=== PATIENT | male | born 1965 | race Caucasian/White ===

== ENCOUNTER → 2017-05-10 | Outpatient (CLI) | payer OTHER ==
[~2017-05-10] MED LIST: AMLO-114 PO; GLC/500 PO; LISI20TA3 PO; OXYM0.056 NAE; RIZA10TA18 PO; SIMV20TA2 PO
--- NOTE | 2017-05-10 10:02 | DIAGNOSTIC IMAGING REPORT ---
CAROTID DOPPLER NECK ART CLINICAL HISTORY: 51 years-old Male presenting with VERTIGO. TECHNIQUE: Real-time grayscale and color and spectral Doppler ultrasound imaging of the bilateral carotid arteries was performed. NASCET criteria was used in evaluating this study. COMPARISON: None. FINDINGS: Right: Common carotid: Patent. Peak systolic velocity 97 cm/s. Internal carotid artery: Patent. Peak systolic velocity 60 cm/s. External carotid artery: Patent. Peak systolic velocity 93 cm/s. Systolic ratio: 0.6. Left: Common carotid: Patent. Peak systolic velocity 91 cm/s. Internal carotid artery: Patent. Peak systolic velocity 59 cm/s. External carotid artery: Patent. Peak systolic velocity 103 cm/s. Systolic ratio: 0.6. Bilateral antegrade flow within the vertebral arteries. Reference ranges: Normal ICA peak systolic velocity less than 125 cm/s. Normal ICA peak systolic velocity to common carotid artery velocity ratio is less than 2: less than 2 equates to less than 50% stenosis, 2-4 equates to 50-69% stenosis, greater than 4 equates to greater than or equal to 70% stenosis. Normal ICA end-diastolic velocity less than 40. Blood pressure Brachial: Right: 140/86 mmHg, Left: 141/86 mmHg. IMPRESSION: No hemodynamically significant stenosis seen within the carotid arteries. Electronically signed by: Tru Sutton M.D. 05/10/2017 10:00 AM Dictated Date/Time: 05/10/2017 9:59 AM
--- NOTE | 2017-06-10 18:55 | CODING QUERY MEDICAL NECESSITY ---
SUPPORTING DIAGNOSIS NEEDED A supporting diagnosis is required for the test/procedure performed on this patient in order for us to be reimbursed by the patient's insurance. Please provide a supporting diagnosis for the following test/procedure listed below next to the test name along with your signature. *If there is no additional diagnosis for this patient that would support the following test/procedure please document that below next to the test/procedure. Test(s)/Procedure(s) that require a supporting diagnosis: * US CAROTID DOPPLER NECK ARTERY DIAGNOSIS: Provider Signature: Date: Thank you Marline Rucker [employer] Once completed, please kindly fax back to [phone] For questions please call [phone]
== END ==
LOC: C.ULTR 09:25
PROVIDERS: ATTEND Nurse Practitioner
DX: R42 Dizziness and giddiness (principal)

== ENCOUNTER → 2017-06-08 | Outpatient (CLI) | payer OTHER ==
[~2017-06-08] MED LIST changes: +GADAVIST IV PRN
--- NOTE | 2017-06-08 13:42 | DIAGNOSTIC IMAGING REPORT ---
MRI OF THE BRAIN WITHOUT AND WITH IV CONTRAST CLINICAL HISTORY: STROKE LIKE .EPISODE;TRANSIENT SPEECH DISTURBANCE. COMPARISON STUDY: No previous studies for comparison. TECHNIQUE: Utilizing a 1.5 Francine magnet and dedicated coil, multiplanar, multiecho imaging of the brain was performed pre and postcontrast administration. IV administration of 7.5 mL of Gadavist contrast was uneventful. FINDINGS: There are no areas of restricted diffusion. No acute intracranial hemorrhage, midline shift or mass effect is present. Brain volume is normal. Ventricular system is normal. Basilar cisterns are patent. There are no extra-axial collections. Flow-voids for the major intracranial vessels are present. There is no intracranial mass or pathologic enhancement. There is a 1 cm old lacunar infarct within the left cerebellar hemisphere. There are multiple subcortical and periventricular white matter T2 hyperintense foci. Calvarial signal is maintained. Small amount of fluid is noted within the left mastoid air cells. There is moderate polypoid mucosal thickening of the sinuses. IMPRESSION: 1. No acute intracranial findings. 2. 1 cm old lacunar infarct within the left cerebellar hemisphere. 3. Scattered small white matter T2 hyperintense foci which are nonspecific although statistically reflect small vessel disease, slightly greater than expected for age. 4. Small amount of fluid within the left mastoid air cells. Electronically signed by: Ryan Solis M.D. 06/08/2017 1:41 PM Dictated Date/Time: 06/08/2017 1:34 PM
== END | disposition home or self-care (01) ==
LOC: C.MRI 10:11
PROVIDERS: ATTEND Psychiatry & Neurology Neurology
DX: I63.9 Cerebral infarction, unspecified (principal); R42 Dizziness and giddiness; R47.9 Unspecified speech disturbances

== ENCOUNTER 2017-09-10 16:05 | Emergency (ER) | payer OTHER ==
[~2017-09-10] VITALS: Ht 165.1 cm; Wt 78.2 kg
[~2017-09-10 16:05] MED LIST changes: -GADAVIST IV PRN
[2017-09-10 16:16] VITALS: TEMP 36.8; Ht 165.1 cm; Wt 78.2 kg
[2017-09-10] MEDS ORDERED: KETOROLAC TROMETHAMINE 30 MG/ML VIAL IV STA (16:28)
--- NOTE | 2017-09-10 16:37 | EMERGENCY ROOM VISIT NOTE ---
History Report prepared by Loretta: Darion Ortiz Under the Supervision of: Dr. Lino Rodriguez M.D. First contact with patient: 16:20 Chief Complaint: FLANK PAIN Stated Complaint: PAIN IN L SIDE OF BACK UNDER RIBCAGE History of Present Illness The patient is a 51 year old male who presents to the Emergency Room with complaints of constant left-sided flank pain beginning two months ago. The patient states that his pain is under the ribs and under the shoulder blade. He notes that he also experiences occasional chest pain that seems to spread to his back. He reports that his pain worsens when he lies down or breathes. He denies any rashes, fever, cough, urinary symptoms, abdominal pain, SOB, and recent injuries. The patient states that he has a history of diabetes, hypertension, neuropathy in his feet, but does not have any previous history of heart and lung problems. He notes that he has had the shingles shot and takes aspirin daily. Source of History: patient Onset: two months ago Position: other (left flank) Timing: constant Modifying Factors (Worsening): breathing, other (laying down) Associated Symptoms: + chest pain, No fevers, No cough, No SOB, No abdominal pain, No urinary symptoms, No rash Note: He denies any recent injuries. Review of Systems See HPI for pertinent positives & negatives. A total of 10 systems reviewed and were otherwise negative. Past Medical & Surgical Medical Problems: (1) Diabetes (2) HTN (hypertension) (3) Neuropathic pain of both legs Old medical records were reviewed. Nurse's notes were reviewed and I agree with. Family History No pertinent family history stated. Social History Smoking Status: Never Smoker Drug Use: none Marital Status: Housing Status: lives with family Occupation Status: disabled Current/Historical Medications Scheduled Amlodipine Besylate (Amlodipine Besylate), 10 MG PO QAM Aspirin (Aspirin Ec), 81 MG PO DAILY Lisinopril (Lisinopril), 20 MG PO BID Metformin Hcl (Glucophage), 1,000 MG PO BID Simvastatin (Simvastatin), 20 MG PO QPM Scheduled PRN Rizatriptan Benzoate (Rizatriptan Benzoate), 10 MG PO UD PRN for Migraine Allergies Coded Allergies: No Known Allergies (Unverified , 06/22/16) Physical Exam Vital Signs Date Time Temp Pulse Resp B/P (MAP) Pulse Ox O2 Delivery O2 Flow Rate FiO2 09/10/17 18:11 85 18 126/80 96 Room Air 09/10/17 17:21 90 18 151/94 97 Room Air 09/10/17 16:16 36.8 105 20 159/101 97 Room Air Physical Exam General: Non-ill appearing middle age male in no acute distress. HEENT: Normal cephalic atraumatic. Pupils are equal round and reactive to light. Extraocular movements are intact. Oropharynx is pink with moist mucous membranes. No swelling of the mouth lips or tongue. Neck: Supple with a midline trachea. No meningeal signs or stiffness, no JVD or bruits. No Stridor. Chest: Clear to auscultation bilaterally. No wheezes or rhonchi. No increased work of breathing. Complains of left posterior chest pain with movement and palpation, reproducibly tender with palpation and movement in mid to lower posterior thoracic area on left, no rash. Heart: regular rate and rhythm. Abdomen: Soft nontender, nondistended without rebound guarding or rigidity. Extremities: No cyanosis clubbing or edema. No calf tenderness or assymetry Spine/Back. Non tender to palpation. No CVA tenderness Skin: Good turgor without rashes. Neurologic exam: Cranial nerves two through 12 are intact. Motor and sensation are intact and symmetrical throughout. Medical Decision & Procedures ER Provider Diagnostic Interpretation: Radiology results as stated below per my review and radiologist interpretation: CHEST ONE VIEW PORTABLE FINDINGS: The cardiac and mediastinal contours are normal. There is no evidence of focal pulmonary consolidation. There is no evidence of failure. No pleural effusions are visualized.[ There is subtle differential attenuation of the hemithoraces, likely secondary to technical factors IMPRESSION: No active disease in the chest. Electronically signed by: Chai Griffin M.D. 09/10/2017 5:11 PM (CHEST) THORAX WITHOUT FINDINGS: Thyroid: Imaged portions of the thyroid gland are normal in appearance. Thoracic aorta: The thoracic aorta is normal in course and caliber, noting standard 3 vessel arch anatomy. Heart: There are minor coronary artery calcifications. The heart is normal in size. Lungs and pleural spaces: No pleural effusions are visualized. There is no focal pulmonary consolidation. There is evidence for mild air trapping within the right upper lobe. Mediastinum: There is no mediastinal lymphadenopathy. Patricia: There is no evidence of pathologic adenopathy given the limitations of a noncontrast study Axilla: Clear. Upper abdomen: Partially visualized upper abdominal viscera is within normal limits. Skeletal structures: There are no lytic or blastic osseous lesions. IMPRESSION: 1. Mild right upper lobe air trapping 2. No evidence of focal pulmonary consolidation. No evidence of pathologic adenopathy. Electronically signed by: Chai Griffin M.D. 09/10/2017 6:11 PM Laboratory Results 09/10/17 16:36 Red Blood Count 4.94, Mean Corpuscular Volume 86.2, Mean Corpuscular Hemoglobin 29.8, Mean Corpuscular Hemoglobin Concent 34.5, Mean Platelet Volume 10.4, Neutrophils (%) (Auto) 57.1, Lymphocytes (%) (Auto) 30.7, Monocytes (%) (Auto) 6.2, Eosinophils (%) (Auto) 5.2, Basophils (%) (Auto) 0.7, Neutrophils # (Auto) 5.07, Lymphocytes # (Auto) 2.72, Monocytes # (Auto) 0.55, Eosinophils # (Auto) 0.46, Basophils # (Auto) 0.06 09/10/17 16:36 Test 09/10/17 16:36 09/10/17 16:39 09/10/17 16:46 White Blood Count 8.87 K/uL (4.8-10.8) Red Blood Count 4.94 M/uL (4.7-6.1) Hemoglobin 14.7 g/dL (14.0-18.0) Hematocrit 42.6 % (42-52) Mean Corpuscular Volume 86.2 fL (80-100) Mean Corpuscular Hemoglobin 29.8 pg (25-34) Mean Corpuscular Hemoglobin Concent 34.5 g/dl (32-36) Platelet Count 254 K/uL (130-400) Mean Platelet Volume 10.4 fL (7.4-10.4) Neutrophils (%) (Auto) 57.1 % Lymphocytes (%) (Auto) 30.7 % Monocytes (%) (Auto) 6.2 % Eosinophils (%) (Auto) 5.2 % Basophils (%) (Auto) 0.7 % Neutrophils # (Auto) 5.07 K/uL (1.4-6.5) Lymphocytes # (Auto) 2.72 K/uL (1.2-3.4) Monocytes # (Auto) 0.55 K/uL (0.11-0.59) Eosinophils # (Auto) 0.46 K/uL (0-0.5) Basophils # (Auto) 0.06 K/uL (0-0.2) RDW Standard Deviation 43.5 fL (36.4-46.3) RDW Coefficient of Variation 14.0 % (11.5-14.5) Immature Granulocyte % (Auto) 0.1 % Immature Granulocyte # (Auto) 0.01 K/uL (0.00-0.02) Anion Gap 5.0 mmol/L (3-11) Est Creatinine Clear Calc Drug Dose 88.7 ml/min Estimated GFR () 107.0 Estimated GFR (Non- 92.3 BUN/Creatinine Ratio 19.1 (10-20) Calcium Level 9.4 mg/dl (8.5-10.1) Total Bilirubin 0.3 mg/dl (0.2-1) Direct Bilirubin 0.1 mg/dl (0-0.2) Aspartate Amino Transf (AST/SGOT) 20 U/L (15-37) Alanine Aminotransferase (ALT/SGPT) 54 U/L (12-78) Alkaline Phosphatase 61 U/L (45-117) Total Protein 8.0 gm/dl (6.4-8.2) Albumin 4.2 gm/dl (3.4-5.0) Lipase 135 U/L (73-393) Urine Color YELLOW Urine Appearance CLOUDY (CLEAR) Urine pH 7.5 (4.5-7.5) Urine Specific [place] 1.021 (1.000-1.030) Urine Protein NEG (NEG) Urine Glucose (UA) 1+ (NEG) Urine Ketones TRACE (NEG) Urine Occult Blood NEG (NEG) Urine Nitrite NEG (NEG) Urine Bilirubin NEG (NEG) Urine Urobilinogen NEG (NEG) Urine Leukocyte Esterase NEG (NEG) Urine WBC (Auto) 0 /hpf (0-5) Urine RBC (Auto) 0-4 /hpf (0-4) Urine Hyaline Casts (Auto) 0 /lpf (0-5) Urine Epithelial Cells (Auto) 0-5 /lpf (0-5) Urine Bacteria (Auto) NEG (NEG) Bedside Troponin I < 0.030 ng/ml (0-0.045) Laboratory studies as stated above per my review. Medications Administered Medications (Trade) Dose Ordered Sig/Bessy Route Start Time Stop Time Status Last Admin Dose Admin Ketorolac Tromethamine (Toradol Inj) 30 mg NOW STAT IV 09/10/17 16:28 09/10/17 16:30 DC 09/10/17 16:41 30 MG Ondansetron HCl (Zofran Inj) 4 mg NOW STAT IV 09/10/17 17:42 09/10/17 17:43 DC 09/10/17 17:47 4 MG Morphine Sulfate (MoRPHine SULFATE INJ) 4 mg NOW STAT IV 09/10/17 17:42 09/10/17 17:43 DC 09/10/17 17:47 4 MG ECG Indication: other (flank pain) Rate (beats per minute): 104 Rhythm: sinus tachycardia Findings: other (Poor baseline, nonspecific T wave abnormality) Comparison ECG Date: 09/11/2015 Change: Compared to prior, sinus tachycardia is present, nonspecific T wave is also present. ED Course 162: Past medical records reviewed. The patient was evaluated in room A3, and a complete history and physical examination were performed. 162: Toradol Inj 30mg IV 172: I reevaluated and updated the patient. I ordered the patient some morphine and Zofran. I also ordered a chest CT. 1741: Morphine Sulfate 4mg IV, Ondansetron HCl 4mg IV, Zofran Inj 4mg IV 1846: Upon reevaluation, the patient is stable. I discussed the results and treatment plan with him. He verbalized agreement of the treatment plan. The patient was discharged home. Medical Decision Differential diagnoses include: musculoskeletal, shingles, pulmonary disease, infection, cardiac disease, and electrolyte/metabolic abnormalities. This patient comes in as described above. He was placed in room A3. He is here for Treatment and evaluation of left posterior rib pain. It is reproducible with palpation and movement and is been there for several months. He has had no shortness of breath. He's had no rash to suggest shingles. IV access was established and he was given Toradol 30 mg IV. Chest x-ray, EKG , and multiple blood tests was obtained as well as urinalysis. He was reassessed frequently. Toradol IV did give him some relief. His chest x-ray was unremarkable. EKG does not suggest acute coronary syndrome or significant arrhythmia. His troponin is also negative. He has no significant electrolyte or metabolic abnormalities. He has nothing to suggest liver, gallbladder, or pancreas disease. His says that she can see the area that is swollen when he moves. I did a chest CT without contrast to mostly evaluate chest wall/rib issues but also pulmonary issues. At this point , I do not think pulmonary embolism is going on constantly for 2 months and is worse with movement and visible upon movement. The CAT scan was obtained . he also did receive morphine 4 mg IV and Zofran 4 mg IV for further pain management. He seems to be more comfortable with this. He was unremarkable and there is no bony abnormality or mass or pulmonary process seen. I think this is some sort of musculoskeletal be related to postherpetic neuralgia or disc disease as well. His said she can see a mass when he moves towards maybe some sort of muscle spasm. He's to use ibuprofen for pain 600 mg every 6 hours return if increasing pain, fever chills, worsening rubs or concerns. I will regular doctor this week for recheck. He should symptoms worsen. He is happy and discharged home. Should return over the weekend if symptoms worsen. Medication Reconcilliation Current Medication List: was personally reviewed by me Blood Pressure Screening Patient's blood pressure: Elevated blood pressure Blood pressure disposition: Elevated BP felt to be situational (due to pain) Impression Primary Impression: Left-sided back pain Scribe Attestation The scribe's documentation has been prepared under my direction and personally reviewed by me in its entirety. I confirm that the note above accurately reflects all work, treatment, procedures, and medical decision making performed by me. Departure Information Dispostion Home / Self-Care Referrals Karen Irizarry MD (PCP) Forms HOME CARE DOCUMENTATION FORM, IMPORTANT VISIT INFORMATION Patient Instructions My [facility] [employer] Additional Instructions Rest Use Ibuprofen 400 mg every 6 hours, take with food. Return if: Increasing pain, worsening of symptoms, fever or chills, any new problems or concerns Follow-up with your doctor this week for recheck or return to ER over the weekend if symptoms worsen.
[2017-09-10 16:47] LABS: BASO % 0.7 %; BASO ABS # 0.06 K/uL (0-0.2); COMPLETE YES; EOS % 5.2 %; HEMATOCRIT 42.6 % (42-52); IG% 0.1 %; LYMPH % 30.7 %; LYMPH ABS # 2.72 K/uL (1.2-3.4); MEAN CELL VOLUME 86.2 fL (80-100); MEAN CORPUSCULAR HEMOGLOBIN 29.8 pg (25-34); MEAN CORPUSCULAR HGB CONC 34.5 g/dl (32-36); MEAN PLATELET VOLUME 10.4 fL (7.4-10.4); MONO % 6.2 %; NEUT % 57.1 %; PLATELET COUNT 254 K/uL (130-400); RED BLOOD COUNT 4.94 M/uL (4.7-6.1); WHITE BLOOD COUNT 8.87 K/uL (4.8-10.8)
[2017-09-10 16:55] LABS: MANUAL MICROSCOPIC REQUIRED? NO; REVIEW REQ? NO; URINE APPEARANCE CLOUDY (CLEAR); URINE BILIRUBIN NEG (NEG); URINE COLOR YELLOW; URINE EPITHELIAL CELL AUTO 0-5 /lpf (0-5); URINE NITRITE NEG (NEG); URINE PH 7.5 (4.5-7.5); URINE SPECIFIC GRAVITY 1.021 (1.000-1.030); UROBILINOGEN NEG (NEG)
[2017-09-10] MEDS ORDERED: ASPI81TA28 PO (17:03)
[2017-09-10] MEDS ORDERED: RIZA1TAB11 PO (17:03)
[2017-09-10] MEDS ORDERED: SIMV-151 PO (17:03)
[2017-09-10] MEDS ORDERED: METF-384 PO (17:03)
[2017-09-10] MEDS ORDERED: LSN20 PO (17:03)
[2017-09-10] MEDS ORDERED: NRV/10 PO (17:03)
--- NOTE | 2017-09-10 17:12 | DIAGNOSTIC IMAGING REPORT ---
CHEST ONE VIEW PORTABLE CLINICAL HISTORY: Atypical chest pain. Back pain. COMPARISON STUDY: 03/31/2013 FINDINGS: The cardiac and mediastinal contours are normal. There is no evidence of focal pulmonary consolidation. There is no evidence of failure. No pleural effusions are visualized.[ There is subtle differential attenuation of the hemithoraces, likely secondary to technical factors IMPRESSION: No active disease in the chest. Electronically signed by: Chai Griffin M.D. 09/10/2017 5:11 PM Dictated Date/Time: 09/10/2017 5:10 PM
[2017-09-10 17:20] LABS: BUN/CREATININE RATIO 19.1 (10-20); CALCIUM 9.4 mg/dl (8.5-10.1); CREATININE 0.95 mg/dl (0.60-1.40); POTASSIUM 3.9 mmol/L (3.5-5.1)
[2017-09-10] MEDS ORDERED: ONDANSETRON INJ 2 MG/ML 2 ML VIAL IV STA (17:42)
[2017-09-10] MEDS ORDERED: MoRPHine SULFATE 4 MG/ML 1 ML CARP\\VIAL IV STA (17:42)
--- NOTE | 2017-09-10 18:12 | DIAGNOSTIC IMAGING REPORT ---
(CHEST) THORAX WITHOUT CLINICAL HISTORY: Posterior chest pain COMPARISON STUDY: Chest x-ray dated 09/08/2017 CT DOSE: 456.98 mGycm TECHNIQUE: CT of the thorax was performed from the thoracic inlet to the lung bases. Images are reviewed in the axial, sagittal, and coronal planes. IV contrast was not administered for this examination. A dose lowering technique was utilized adhering to the principles of ALARA. FINDINGS: Thyroid: Imaged portions of the thyroid gland are normal in appearance. Thoracic aorta: The thoracic aorta is normal in course and caliber, noting standard 3 vessel arch anatomy. Heart: There are minor coronary artery calcifications. The heart is normal in size. Lungs and pleural spaces: No pleural effusions are visualized. There is no focal pulmonary consolidation. There is evidence for mild air trapping within the right upper lobe. Mediastinum: There is no mediastinal lymphadenopathy. Patricia: There is no evidence of pathologic adenopathy given the limitations of a noncontrast study Axilla: Clear. Upper abdomen: Partially visualized upper abdominal viscera is within normal limits. Skeletal structures: There are no lytic or blastic osseous lesions. IMPRESSION: 1. Mild right upper lobe air trapping 2. No evidence of focal pulmonary consolidation. No evidence of pathologic adenopathy. Electronically signed by: Chai Griffin M.D. 09/10/2017 6:11 PM Dictated Date/Time: 09/10/2017 6:06 PM
[2017-09-10 18:54] VITALS: BP 115/71; PULSE 74; O2SAT 96
== END 2017-09-10 18:55 | disposition home or self-care (01) ==
LOC: C.EDB 16:05 → C.EDA 18:55
DX: M54.6 Pain in thoracic spine (principal); R07.89 Other chest pain; E11.40 Type 2 diabetes mellitus with diabetic neuropathy, unspecified; I10 Essential (primary) hypertension; Z79.82 Long term (current) use of aspirin

== ENCOUNTER → 2017-11-23 | Outpatient (CLI) | payer BC ==
[~2017-11-23] MED LIST changes: -AMLO-114 PO; +ASPI81TA28 PO; -GLC/500 PO; -LISI20TA3 PO; +LSN20 PO; +METF-384 PO; +NRV/10 PO; -OXYM0.056 NAE; -RIZA10TA18 PO; +RIZA1TAB11 PO; +SIMV-151 PO; -SIMV20TA2 PO
[2017-11-23 12:26] LABS: BASO % 1.3 %; BASO ABS # 0.09 K/uL (0-0.2); EOS % 4.5 %; EOS ABS # 0.32 K/uL (0-0.5); HEMATOCRIT 42.9 % (42-52); HEMOGLOBIN 14.4 g/dL (14.0-18.0); IG# 0.01 K/uL (0.00-0.02); LYMPH % 30.6 %; LYMPH ABS # 2.18 K/uL (1.2-3.4); MEAN CELL VOLUME 86.3 fL (80-100); MEAN CORPUSCULAR HGB CONC 33.6 g/dl (32-36); MEAN PLATELET VOLUME 10.9 fL (7.4-10.4); MONO ABS # 0.43 K/uL (0.11-0.59); NEUT % 57.5 %; NEUT ABS # 4.09 K/uL (1.4-6.5); PLATELET COUNT 255 K/uL (130-400); RED CELL DISTRIBUTION WIDTH CV 13.7 % (11.5-14.5); RED CELL DISTRIBUTION WIDTH SD 42.9 fL (36.4-46.3); WHITE BLOOD COUNT 7.12 K/uL (4.8-10.8)
[2017-11-23 13:02] LABS: ALBUMIN 4.1 gm/dl (3.4-5.0); ALT/SGPT 56 U/L (12-78); AST/SGOT 20 U/L (15-37); BLOOD UREA NITROGEN 17 mg/dl (7-18); CALCIUM 9.3 mg/dl (8.5-10.1); CARBON DIOXIDE 26 mmol/L (21-32); CREATININE 0.86 mg/dl (0.60-1.40); GLUCOSE 180 mg/dl (70-99); POTASSIUM 4.3 mmol/L (3.5-5.1); SODIUM 136 mmol/L (136-145)
[2017-11-23 13:13] LABS: ALKALINE PHOSPHATASE 57 U/L (45-117); TOTAL PROTEIN 7.6 gm/dl (6.4-8.2)
== END | disposition home or self-care (01) ==
LOC: C.LAB 10:15
PROVIDERS: ATTEND Nurse Practitioner Family
DX: R20.0 Anesthesia of skin (principal)

== ENCOUNTER 2018-10-21 08:33 | Inpatient (IN) ==
[2018-10-21] MEDS ORDERED: SODIUM CHLORIDE 0.9% 500 ML IV SCH (10:00)
[2018-10-21 10:16] LABS: Basophils # (auto) 0.03 K/uL (0-0.2); Basophils % (auto) 0.2 %; Eosinophils # (auto) 0.01 K/uL (0-0.5); Eosinophils % (auto) 0.1 %; Hematocrit (blood only) 43.9 % (42-52); Immature Granulocytes # (auto) 0.02 K/uL (0.00-0.02); Immature Granulocytes % (auto) 0.2 %; Lymphocytes # (auto) 0.79 K/uL (1.2-3.4); Lymphocytes % (auto) 6.5 %; Mean Corpuscular Hgb Conc 34.2 g/dL (32-36); Mean Corpuscular Volume 85.7 fL (80-100); Mean Platelet Volume 10.7 fL (7.4-10.4); Monocytes # (auto) 0.42 K/uL (0.11-0.59); Monocytes % (auto) 3.4 %; Neutrophils # (auto) 10.96 K/uL (1.4-6.5); Neutrophils % (auto) 89.6 %; Platelet Count 230 K/uL (130-400); RDW Coefficient of Variation 13.9 % (11.5-14.5); RDW Standard Deviation 43.4 fL (36.4-46.3); Red Blood Count 5.12 M/uL (4.7-6.1); White Blood Count 12.23 K/uL (4.8-10.8)
[2018-10-21 10:33] LABS: Albumin Level 4.1 gm/dl (3.4-5.0); BUN Creatinine Ratio 16.2 (10-20); Calcium 9.3 mg/dl (8.5-10.1); Creatinine Clr Calc Pharmacy 87.5 ml/min; Est GFR (African American) 106.9; Est GFR (Non-African American) 92.2
[2018-10-21 10:36] LABS: Albumin Globulin Ratio 1.2 (0.9-2); Bilirubin,Total 0.5 mg/dl (0.2-1); Globulin 3.5 gm/dl (2.5-4.0); Total Protein 7.6 gm/dl (6.4-8.2)
[2018-10-21] MEDS ORDERED: MoRPHine SULFATE 4 MG/ML 1 ML CARP\\VIAL IV STA (10:42)
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
[2018-10-21] MEDS ORDERED: ONDANSETRON INJ 2 MG/ML 2 ML VIAL ONE (10:55)
[2018-10-21] MEDS ORDERED: ONDANSETRON INJ 2 MG/ML 2 ML VIAL IV STA (10:57)
[2018-10-21] MEDS ORDERED: IOVERSOL 100ml IV PRN ×2 (11:17→16:00)
--- NOTE | 2018-10-21 11:39 | CT Scan Report ---
ABDOMEN AND PELVIS CT WITH IV CONTRAST CT DOSE: 419.17 mGy.cm HISTORY: Acute left lower quadrant abdominal pain llq pain TECHNIQUE: Multiaxial CT images of the abdomen and pelvis were performed following the use of intrave nous contrast. A dose lowering technique was utilized adhering to the principles of ALARA. COMPARISON STUDY: Chest CT 09/10/2017. FINDINGS: Lung bases appear generally clear. No pneumatosis or pneumoperitoneum. Imaged inferior cardiac chamb ers appear unremarkable. Coronary arterial and aortic annular calcifications noted. Circumscribed 2.0 cm hypodense lesion about segment TOÑO of the liver appears unchanged from compariso n study and is suggestive of a benign etiology such as a cyst or hemangioma. Liver is otherwise unrem arkable. No intrahepatic biliary ductal dilation. Patency of the portal and hepatic veins. Spleen, pa ncreas, gallbladder and adrenal glands appear unremarkable. Kidneys, ureters and urinary bladder are unremarkable. Prostate is mildly prominent with central coarse calcifications. Tiny fat filled left i nguinal hernia. Mild calcification of the abdominal aorta without aneurysm. IVC is unremarkable. No a denopathy. Nonspecific mild stranding about the central mesentery. Tiny fat filled sliding-type hiatal hernia. N o small bowel obstruction. Colonic diverticulosis. Fluid-filled loops of large bowel are noted. Wall thickening with mild surrounding inflammatory stranding and mucosal hyperemia is noted about the colo n, predominately extending from the splenic flexure through the rectum. No evidence of perforation or drainable fluid collection. No significantly inflamed diverticulum. Terminal ileum and appendix appe ar unremarkable. No ascites. Soft tissues are unremarkable. Bone islands noted about the pelvis and left femur. Multilevel facet a rthrosis with spondylitic spurring. Bones appear to be intact. Posterior disc osteophyte complex form ation with mild intervertebral disc space narrowing at L5-S1. IMPRESSION: 1. Circumferential wall thickening with mild surrounding inflammatory stranding and mucosal hyperemia is noted extending from the splenic flexure through the rectum suggestive of a nonspecific colitis. 2. No pneumatosis or drainable fluid collection. 3. Colonic diverticulosis. 4. Normal appendix. 5. No bowel obstruction. Electronically signed by: Collin Malone M.D. 10/21/2018 11:37 AM
[2018-10-21] MEDS ORDERED: fentaNYL citrate 100 MCG/2 ML VIAL IV STA (12:08)
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
[2018-10-21] MEDS ORDERED: CYCLOBENZAPRINE HCL 5 MG TAB PO PRN (13:32)
[2018-10-21] MEDS ORDERED: GLUCAGON FOR INJ 1 MG VIAL SQ PRN (13:32)
[2018-10-21] MEDS ORDERED: GLUCOSE 10 TABS/TUBE PO PRN (13:32)
[2018-10-21] MEDS ORDERED: RIZATRIPTAN BENZOATE 10 MG TAB PO PRN (13:32)
[2018-10-21] MEDS ORDERED: ONDANSETRON INJ 2 MG/ML 2 ML VIAL IV PRN (13:32)
[2018-10-21] MEDS ORDERED: DEXTROSE 50% 50 ML SYRINGE IV PRN (13:32)
[2018-10-21] MEDS ORDERED: GLUCOSE 40% GEL 15 GM TUBE PO PRN (13:32)
[2018-10-21] MEDS ORDERED: ACETAMINOPHEN 325 MG TAB PO PRN (13:32)
[2018-10-21] MEDS ORDERED: CARBOHYDRATES FOR HYPOGLYCEMIA PO PRN (13:32)
[2018-10-21] MEDS ORDERED: PANTOprazole 40 MG TAB PO ONE (14:00)
[2018-10-21] MEDS ORDERED: SODIUM CHLORIDE 0.9% 1000ML 1,000 ML IV SCH (14:00)
[2018-10-21] MEDS: MoRPHine SULFATE 4 MG/ML 1 ML CARP\\VIAL IV PRN (15:41)
--- NOTE | 2018-10-21 16:12 | CT Scan Report ---
CT angio abdomen pelvis w con CLINICAL HISTORY: 53 years-old Male presenting with Assess for bowel ischemia. TECHNIQUE: Multidetector CT angiography of the abdomen and pelvis was performed after the administrat ion of intravenous contrast. 3-D volumetric and/or maximum intensity projection (MIP) images were sub sequently reconstructed for review. IV contrast: 120 mL of Optiray 320. One or more dose lowering august hniques were used consistent with the principles of ALARA (as low as reasonably achievable), includin g automatic exposure control, mA or kV adjustment to individual patient size, and/or use of iterative reconstruction. Stenosis measurements were based on NASCET-like criteria (distal lumen diameter as t he denominator for stenosis measurement). COMPARISON: 10/21/2018 at 11:[address] DOSE (mGy.cm): The estimated cumulative dose is 498.07 mGy.cm. 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 Vasculature: Trace atherosclerosis of the abdominal aorta, which is normal in caliber. Major branch vessels includ ing the celiac, superior mesenteric, bilateral single main renal, and inferior mesenteric arteries pa tent. Bilateral common, internal, Renal iliac arteries patent. Bilateral common, superficial, and deep femoral arteries patent. No evid ence of a filling defect in distal branches to suggest an embolus or thrombus. Conventional hepatic a rterial anatomy. Remaining abdomen and pelvis: Lung bases: No focal infiltrate or nodule at the lung bases. Normal heart size. No pericardial or ple ural effusion. Liver: Normal morphology. No liver lesion allowing for the early arterial phase of contrast. Patent h epatic vasculature. Biliary: No intrahepatic or extrahepatic biliary ductal dilatation. Normal gallbladder. Pancreas: Mild parenchymal atrophy. Spleen: Normal. Adrenal glands: Normal. Kidneys and ureters: Normal. No hydronephrosis. Contrast is noted within the bilateral urinary collec ting systems. No gross evidence of urothelial thickening. Bladder: Circumferential bladder wall thickening. Pelvic organs: Prostate enlargement likely secondary to benign prostatic hyperplasia. Bowel: Wall thickening and pericolic inflammatory change extending from the splenic flexure to the pr oximal sigmoid colon. There is associated diverticulosis though the extent of inflammatory change santiago s not strongly suggest diverticulitis as the etiology. Mild wall thickening of the mid to distal sigm oid colon and upper rectum. Normal appendix. No bowel obstruction. Peritoneal cavity: No free fluid or intraperitoneal gas. Lymph nodes: No enlarged lymph nodes in the abdomen or pelvis. Abdominal wall: Fat-containing left internal hernia. Musculoskeletal: Normal. IMPRESSION: 1. Findings again most consistent with moderate colitis extending from the splenic flexure to the pr oximal sigmoid colon, most likely infectious or inflammatory. Though there is diverticulosis in this region, the extensive inflammatory change would be less characteristic of diverticulitis. 2. Patent vasculature. This argues against ischemia as an etiology for the colonic findings. 3. Chronic bladder obstruction secondary to prostatomegaly. Electronically signed by: Tru Sutton M.D. 10/21/2018 4:11 PM
[2018-10-21] MEDS: INSULIN ASPART 100 UNITS/ML 3 ML PEN SC SCH (16:26)
[2018-10-21] MEDS: metroNIDAZOLE 500 MG/100 ML BAG IV SCH (21:20)
[2018-10-21] MEDS: CIPROFLOXACIN 400 MG/200 ML BAG IV SCH (21:20)
[2018-10-21] MEDS: SIMVASTATIN 20 MG TAB PO SCH (21:21)
[2018-10-21] MEDS: PANTOprazole 40 MG TAB PO SCH (21:21)
[2018-10-21] MEDS: LISINOPRIL 20 MG TAB PO SCH (21:21)
[2018-10-22] MEDS: INSULIN ASPART 100 UNITS/ML 3 ML PEN SC SCH ×4 (00:50→20:53)
[2018-10-22 02:37] LABS: Alanine Aminotransferase 30 U/L (12-78); Albumin Level 3.2 gm/dl (3.4-5.0); Aspartate Aminotransferase 11 U/L (15-37); BUN Creatinine Ratio 14.6 (10-20); Blood Urea Nitrogen 12 mg/dl (7-18); Calcium 8.2 mg/dl (8.5-10.1); Carbon Dioxide 27 mmol/L (21-32); Chloride 106 mmol/L (98-107); Creatinine Clr Calc Pharmacy 102.9 ml/min; Est GFR (African American) 118.2; Glucose 157 mg/dl (70-99); Potassium 3.7 mmol/L (3.5-5.1); Sodium 138 mmol/L (136-145)
[2018-10-22 02:53] LABS: Albumin Globulin Ratio 1.1 (0.9-2); Alkaline Phosphatase 49 U/L (45-117); Bilirubin,Total 0.8 mg/dl (0.2-1); Total Protein 6.2 gm/dl (6.4-8.2); Troponin I < 0.015 ng/ml (0-0.045)
[2018-10-22] MEDS: metroNIDAZOLE 500 MG/100 ML BAG IV SCH ×3 (05:03→20:50)
[2018-10-22 06:23] LABS: Hematocrit (blood only) 40.2 % (42-52); Hemoglobin 13.8 g/dL (14.0-18.0); Mean Corpuscular Hgb Conc 34.3 g/dL (32-36); Mean Platelet Volume 10.5 fL (7.4-10.4); Platelet Count 216 K/uL (130-400); RDW Coefficient of Variation 14.3 % (11.5-14.5); RDW Standard Deviation 45.3 fL (36.4-46.3); Red Blood Count 4.62 M/uL (4.7-6.1); White Blood Count 13.77 K/uL (4.8-10.8)
[2018-10-22] MEDS: CIPROFLOXACIN 400 MG/200 ML BAG IV SCH ×2 (08:46→20:51)
[2018-10-22] MEDS: PANTOprazole 40 MG TAB PO SCH ×2 (08:47→20:51)
[2018-10-22] MEDS: hydroCHLOROthiazide 25 MG TAB PO SCH (08:48)
[2018-10-22] MEDS: AMLODIPINE BESYLATE 5 MG TAB PO SCH (08:48)
[2018-10-22] MEDS: LISINOPRIL 20 MG TAB PO SCH ×2 (08:48→20:53)
[2018-10-22] MEDS ORDERED: ASPIRIN 81 MG ECTAB PO SCH (09:00)
[2018-10-22] MEDS: NSS + 20MEQ KCL 20 MEQ/1,000 ML BAG IV SCH ×2 (11:18→23:34)
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
[2018-10-22] MEDS ORDERED: POLYETHYLENE (MIRALAX) 17 GM PACK PO SCH (14:30)
[2018-10-22] MEDS ORDERED: Nursing to Pharmacy Communication ONE ×2 (14:32→16:54)
[2018-10-22] MEDS: MoRPHine SULFATE 4 MG/ML 1 ML CARP\\VIAL IV PRN (18:06)
[2018-10-22] MEDS: SIMVASTATIN 20 MG TAB PO SCH (20:53)
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
[2018-10-23] MEDS: metroNIDAZOLE 500 MG/100 ML BAG IV SCH ×2 (03:32→11:39)
[2018-10-23 06:24] LABS: Hematocrit (blood only) 37.2 % (42-52); Mean Corpuscular Hgb Conc 32.3 g/dL (32-36); Mean Corpuscular Volume 87.1 fL (80-100); Mean Platelet Volume 10.4 fL (7.4-10.4); Platelet Count 188 K/uL (130-400); RDW Coefficient of Variation 14.3 % (11.5-14.5); RDW Standard Deviation 45.5 fL (36.4-46.3); Red Blood Count 4.27 M/uL (4.7-6.1); White Blood Count 13.56 K/uL (4.8-10.8)
[2018-10-23 06:49] LABS: BUN Creatinine Ratio 10.8 (10-20); Creatinine Clr Calc Pharmacy 103.9 ml/min; Est GFR (African American) 118.8; Est GFR (Non-African American) 102.5; Potassium 3.8 mmol/L (3.5-5.1)
[2018-10-23] MEDS: CIPROFLOXACIN 400 MG/200 ML BAG IV SCH (07:52)
[2018-10-23] MEDS: LISINOPRIL 20 MG TAB PO SCH (07:52)
[2018-10-23] MEDS: PANTOprazole 40 MG TAB PO SCH (07:52)
[2018-10-23] MEDS: AMLODIPINE BESYLATE 5 MG TAB PO SCH (07:52)
[2018-10-23] MEDS: hydroCHLOROthiazide 25 MG TAB PO SCH (07:52)
[2018-10-23] MEDS: INSULIN ASPART 100 UNITS/ML 3 ML PEN SC SCH ×2 (08:29→12:41)
[2018-10-23] MEDS: NSS + 20MEQ KCL 20 MEQ/1,000 ML BAG IV SCH (11:14)
--- NOTE | 2018-10-23 13:25 | Progress Note ---
Date of Service October 23, 2018 Subjective I have seen and examined the patient today, he feels better, no abdominal pain but slight discomfort in the LLQ. He moved his bowel several times, liquid brown stool with no bleeding. On exam abdomen is soft and nontender. H/H stable. Recommend: In view of clinical improvement and self limited bleeding, can arrange colonoscopy with as OP in 3-4 weeks. Complete a course of ABx upon discharge for colitis. Advance diet as tolerated. Continue Miralax and fiber diet. Recall GI if needed. Physical Exam 2 Vital Signs (Past 24 Hours): Last Vital Signs Temp 36.9 C 10/23/18 08:25 Pulse 80 10/23/18 08:25 Resp 18 10/23/18 08:25 BP 134/83 10/23/18 08:25 Pulse Ox 97 10/23/18 08:25
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
== END 2018-10-23 14:35 | disposition home or self-care (01) | DRG 392 ==
LOC: 2E 08:33 → ED 08:33 → 2E 13:03 → SUATTDRO 13:47 → 4W 10-22 18:17
DX: F43.10 Post-traumatic stress disorder, unspecified; Z86.73 Personal history of transient ischemic attack (TIA), and cerebral infarction without residual deficits; F32.9 Major depressive disorder, single episode, unspecified; F41.9 Anxiety disorder, unspecified; K52.9 Noninfective gastroenteritis and colitis, unspecified; Z79.82 Long term (current) use of aspirin; K92.2 Gastrointestinal hemorrhage, unspecified; I10 Essential (primary) hypertension; E11.9 Type 2 diabetes mellitus without complications

== ENCOUNTER 2023-09-23 13:06 | Observation (INO) ==
[2023-09-23 14:45] LABS: Alanine Aminotransferase 21 U/L (7-52); Albumin Globulin Ratio 1.8 (0.9-2); Alkaline Phosphatase 60 U/L (34-104); Anion Gap 9 (3-11); Aspartate Aminotransferase 17 U/L (13-39); BUN Creatinine Ratio 23.4 (10-20); Bilirubin,Total 0.5 mg/dl (0.2-1.0); Blood Urea Nitrogen 18 mg/dl (6-23); Calcium 10.1 mg/dl (8.6-10.3); Carbon Dioxide 28 mmol/L (21-32); Chloride 101 mmol/L (98-107); Est GFR (African American) 116.8 ml/min; Est GFR (Non-African American) 100.7 ml/min; Globulin 2.8 gm/dl (2.5-4.0); Glucose 144 mg/dl (70-99(Fasting)); Magnesium 1.9 mg/dl (1.7-2.4); Potassium 3.6 mmol/L (3.5-5.1); Sodium 138 mmol/L (136-145); Total Protein 7.8 gm/dl (6.0-8.3)
[2023-09-23 14:49] LABS: Hematocrit (blood only) 46.5 % (42.0-52.0); Hemoglobin 15.5 g/dl (14.0-18.0); Mean Corpuscular Hgb Conc 33.3 g/dL (32.0-36.0); Mean Corpuscular Volume 87.1 fL (80.0-100.0); Mean Platelet Volume 11.2 fL (9.4-12.4); Platelet Count 242 K/uL (130-400); RDW Coefficient of Variation 14.1 % (11.5-14.5); RDW Standard Deviation 45.1 fL (36.4-46.3); Red Blood Count 5.34 M/uL (4.70-6.10); White Blood Count 8.46 K/ul (4.8-10.8)
--- NOTE | 2023-09-23 14:58 | CT Scan Report ---
HEAD CT NONCONTRAST CT DOSE: 547.75 mGy.cm HISTORY: Confusion. Headache. Neuro deficit, acute, stroke suspected TECHNIQUE: Multiaxial CT images of the head were performed without the use of intravenous contrast. A utomated exposure control was utilized for this study. A dose lowering technique was utilized adheri ng to the principles of ALARA. Comparison: Head CT 06/11/2023. Brain MRI 09/10/2023. Findings: The paranasal sinuses and mastoid air cells are clear. The calvarium and skull base are int act. The ventricles and sulci are within normal limits. There is no mass, hematoma, or midline shift. Stable 1 cm hypodense focus within the left cerebellar hemisphere. This likely corresponds to the ol d lacunar infarct seen on the prior studies. Small peripheral hypodensity within the left cerebellar hemisphere on image 5 may represent artifact. This measures 14 mm. A small acute infarct is not exclu ded. Impression: A 14 mm peripheral hypodensity within the left cerebellar hemisphere. This is indeterminate and could represent artifact or a small acute infarct. ACT 112: Negative or not required by law. Electronically signed by: Jeff Monique M.D. 09/23/2023 2:57 PM
[2023-09-23 15:02] LABS: INR 0.9 (0.9-1.1); Partial Thromboplastin Ratio 0.9; Partial Thromboplastin Time 25 Seconds (21-31); Prothrombin Time 10.3 Seconds (9.0-12.0)
--- NOTE | 2023-09-23 16:29 | Electrocardiogram Report ---
Test Reason : Blood Pressure : / mmHG Vent. Rate : 075 BPM Atrial Rate : 075 BPM P-R Int : 140 ms QRS Dur : 084 ms QT Int : 364 ms P-R-T Axes : 048 -08 027 degrees QTc Int : 406 ms Normal sinus rhythm Normal ECG When compared with ECG of 11-JUN-2023 11:30, No significant change was found Confirmed by Angus Villa ([id number]) on 09/23/2023 4:29:18 PM Referred By: Confirmed By:Angus Villa
--- NOTE | 2023-09-23 16:57 | XRay Report ---
XR chest 1V not portable HISTORY: Stroke symptoms. Headache. COMPARISON: Chest 11/13/2022. FINDINGS: The lungs are clear. Cardiac silhouette is normal in size. No pleural effusions. No pneumot horax. IMPRESSION: No acute process. ACT 112: Negative or not required by law. Electronically signed by: Jeff Monique M.D. 09/23/2023 4:56 PM
[2023-09-23] MEDS ORDERED: ACETAMINOPHEN 500 MG TAB PO STA (19:36)
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
[2023-09-23] MEDS ORDERED: LORazepam 1 MG/1 ML SYR ED Inj Use IV PRN (20:09)
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
[2023-09-23] MEDS ORDERED: GLUCOSE 10 TAB/TUBE PO PRN (20:37)
[2023-09-23] MEDS ORDERED: GLUCAGON FOR INJ 1 MG VIAL SQ PRN (20:37)
[2023-09-23] MEDS ORDERED: POLYETHYLENE (MIRALAX) 17 GM PACK PO PRN (20:37)
[2023-09-23] MEDS ORDERED: GLUCOSE 40% GEL 15 GM TUBE PO PRN (20:37)
[2023-09-23] MEDS ORDERED: ACETAMINOPHEN 325 MG TAB PO PRN (20:37)
[2023-09-23] MEDS ORDERED: CARBOHYDRATES FOR HYPOGLYCEMIA PO PRN (20:37)
[2023-09-23] MEDS ORDERED: DEXTROSE 50% 50 ML SYRINGE IV PRN (20:37)
[2023-09-23] MEDS: LORazepam 1 MG/1 ML SYR ED Inj Use IV PRN ×2 (20:55→21:47)
[2023-09-23] MEDS ORDERED: hydrOXYzine HCl 25 MG TAB PO STA (21:25)
[2023-09-23] MEDS ORDERED: GADOBUTROL 65ML VIAL IV ONE (22:15)
[2023-09-23] MEDS: LANTUS PER UNIT CHARGE SQ SCH (22:53)
[2023-09-23] MEDS: INSULIN ASPART PER UNIT CHARGE SC SCH (22:53)
--- NOTE | 2023-09-23 23:11 | Magnetic Resonance Report ---
Exam(s): MRI HEAD W/WO Contrast IV Amt: 7mL Gadavist given IV EXAM: MR Head Without and With Intravenous Contrast CLINICAL HISTORY: Reason for exam: stroke rule out. TECHNIQUE: Magnetic resonance images of the head/brain without and with intravenous contrast in multiple planes. CONTRAST: Patient received 7mL Gadavist given IV of IV contrast COMPARISON: CT head 09/23/23; MRI brain 09/10/23 FINDINGS: There is no diffusion restriction to suggest acute cerebral ischemia. There is no acute intracranial hemorrhage or abnormal extra-axial fluid collection. There is no mass-effect or midline shift. There is no hydrocephalus. There is a chronic lacunar infarct in the left cerebellar hemisphere. There are mild chronic small vessel ischemic changes in the periventricular and deep cerebral white matter. There is mild cortical cerebral volume loss. Postcontrast images demonstrate a persistent focus of enhancement in the inferior-medial left cerebellum measuring 8 mm, slightly less conspicuous than on prior exam. No other abnormal intracranial enhancement is seen. There are mild staphylomas of both globes, stable from prior. Sinuses are clear. There is trace left mastoid effusion. IMPRESSION: 1. No acute intracranial findings. 2. Redemonstrated small region of enhancement in the inferior-medial left cerebellum measuring 8 mm, slightly less conspicuous than on prior exam. As noted on previous MRI, this may represent an evolving subacute infarct. Recommend contrast enhanced MRI follow-up in 3-6 months. Electronically signed by: Michael Wells M.D. 09/23/23 23:10 PM
--- NOTE | 2023-09-24 03:50 | Billing Data ---
Date of Service September 24, 2023 Coding Level of Care Code 97179 INT INP/OBS CARE
[2023-09-24] MEDS ORDERED: amLODIPine BESYLATE 5 MG TAB PO SCH (09:00)
[2023-09-24] MEDS ORDERED: ASPIRIN 81 MG ECTAB PO SCH (09:00)
[2023-09-24] MEDS: INSULIN ASPART PER UNIT CHARGE SC SCH (09:19)
[2023-09-24] MEDS: LANTUS PER UNIT CHARGE SQ SCH (09:19)
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
== END 2023-09-24 11:18 | disposition home or self-care (01) ==
LOC: ED 13:06 → EDINP 13:06 → SUATTDRO 19:40 → EDINP 20:35